=== PATIENT | male | born 1960 | race Hispanic/Latino ===

== ENCOUNTER 2024-11-07 09:53 | Emergency (ER) | payer OTHER ==
[2024-11-07] MEDS ORDERED: NA CHLORIDE 0.9% 1,000 ML ONE (10:23)
[2024-11-07] MEDS ORDERED: FAMOTIDINE 20 MG/2 ML VIAL IV ONE (10:23)
[2024-11-07] MEDS ORDERED: ONDANSETRON 4 MG/2 ML VIAL ONE (10:23)
[2024-11-07 10:47] LABS: Absolute Lymphocytes (CBC) 2.8 K/uL (0.7-4.9); Hematocrit 47.3 % (39.6-49.0); Hemoglobin 16.2 g/dL (13.6-17.9); MCH 30.5 pg (27.0-35.0); MCHC 34.1 g/dL (32.0-36.0); MCV 89.5 fL (80-100); MPV 8.9 fL (7.6-11.3); Nucleated RBC Absolute Count 0.0 (0-0); Nucleated Red Blood Cells % 0.1 % (0-0); RBC Red Blood Cell Count 5.29 M/uL (4.33-5.43); White Blood Count 10.40 thou/uL (4.3-10.9)
[2024-11-07 10:54] LABS: PT Prothrombin Time 13.3 SECONDS (10-13.0); Protime INR 1.18
--- NOTE | 2024-11-07 10:59 | RAD REPORT ---
EXAMINATION: ONE VIEW CHEST XR CLINICAL INDICATION: Male, 64 years old.,ABDOMINAL DISTENTION TECHNIQUE: Frontal chest projection is submitted. Examination is limited by patient positioning and t echnique. COMPARISON: No prior exam. FINDINGS: The lungs are grossly clear although suboptimal inspiratory effort somewhat limits evaluation. No pn eumothorax or sizable effusion. The heart is normal in size. Mediastinal contours are unremarkable. IMPRESSION: No acute intrathoracic abnormalities.
[2024-11-07 11:08] LABS: Urine Microscopic Reflex YN NO UMIC
[2024-11-07 11:21] LABS: ALT/SGPT 87.0 U/L (16-61); AST/SGOT 65.0 U/L (15-37); Albumin 3.7 g/dL (3.4-5.0); Albumin/Globulin Ratio 0.8 (1.1-1.8); Alkaline Phosphatase 97.0 U/L (45-117); Anion Gap 10.3 mEq/L (5.0-15.0); BUN Blood Urea Nitrogen 12.0 mg/dL (7-18); Bilirubin Indirect, Calculated 0.8 mg/dL (0.2-0.8); Globulin 4.5 g/dL (2.3-3.5); Glucose Level 238.0 mg/dL (74-106); Lipase 26.0 U/L (13-75); Magnesium 1.8 mg/dL (1.6-2.4); NT PRO-BNP 22.0 pg/mL (<125); Potassium 3.3 mEq/L (3.5-5.1); Troponin High Sensitivity 33.4 pg/mL (<58.9)
[2024-11-07] MEDS ORDERED: POTASSIUM 25 MEQ EFFERV TAB ONE (11:51)
[2024-11-07 12:02] LABS: Influenza A Ag Negative
[2024-11-07 12:03] LABS: Influenza B Ag Negative; SARS-CoV-2 Antigen Rapid Res Negative (Negative)
--- NOTE | 2024-11-07 13:11 | EDPHYS ---
Physician Documentation [facility] Name: Srikanth Hanson Age: 64 yrs Sex: Male : 1960 Arrival Date: 11/07/2024 Time: 09:53 Bed DX3 Private MD: ED Physician Santosh Chen HPI: 11/07 10:55 This 64 yrs old Male presents to ER via Ambulatory with complaints of emi Headache, Dizziness, Epigastric Pain. 10:55 The patient complains of pain to the forehead, left frontal area and right frontal emi area. The patient describes the headache as aching. Onset: The symptoms/episode began/occurred 2 day(s) ago. Associated signs and symptoms: The patient has no apparent associated signs or symptoms. Severity of symptoms: At its worst the pain was mild, moderate, in the emergency department the pain is unchanged. Headache History: The patient has had previous headaches and this one is similar to previous episodes. The symptoms are alleviated by nothing. the symptoms are aggravated by nothing. The patient has experienced similar episodes in the past, multiple times. Historical: - Allergies: 10:13 No Known Allergies; ss - PMHx: 10:13 Hypercholesterolemia; Hypertensive disorder; Diabetes mellitus; ss - PSHx: 10:13 None; ss - Immunization history:: Adult Immunizations up to date. - Infectious Disease History:: Denies. - Social history:: Smoking status: Patient reports the use of cigarette tobacco products, denies chronic smoking, but will smoke occasionally. - Family history:: not pertinent. ROS: 10:55 Constitutional: Negative for fever, chills, and weight loss, Eyes: Negative for injury, emi pain, redness, and discharge, ENT: Negative for injury, pain, and discharge, Neck: Negative for injury, pain, and swelling, Cardiovascular: Negative for chest pain, palpitations, and edema, Respiratory: Negative for shortness of breath, cough, wheezing, and pleuritic chest pain, Abdomen/GI: Negative for abdominal pain, nausea, vomiting, diarrhea, and constipation, Back: Negative for injury and pain, : Negative for injury, bleeding, discharge, and swelling, MS/Extremity: Negative for injury and deformity, Skin: Negative for injury, rash, and discoloration, Psych: Negative for depression, anxiety, suicide ideation, homicidal ideation, and hallucinations, Allergy/Immunology: Negative for hives, rash, and allergies, Endocrine: Negative for neck swelling, polydipsia, polyuria, polyphagia, and marked weight changes, 10:55 Neuro: Positive for headache, Exam: 10:55 Constitutional: This is a well developed, well nourished patient who is awake, alert, emi and in no acute distress. Head/Face: Normocephalic, atraumatic. Eyes: Pupils equal round and reactive to light, extra-ocular motions intact. Lids and lashes normal. Conjunctiva and sclera are non-icteric and not injected. Cornea within normal limits. Periorbital areas with no swelling, redness, or edema. ENT: Nares patent. No nasal discharge, no septal abnormalities noted. Tympanic membranes are normal and external auditory canals are clear. Oropharynx with no redness, swelling, or masses, exudates, or evidence of obstruction, uvula midline. Mucous membranes moist. Neck: Trachea midline, no thyromegaly or masses palpated, and no cervical lymphadenopathy. Supple, full range of motion without nuchal rigidity, or vertebral point tenderness. No Meningismus. Chest/axilla: Normal chest wall appearance and motion. Nontender with no deformity. No lesions are appreciated. Cardiovascular: Regular rate and rhythm with a normal S1 and S2. No gallops, murmurs, or rubs. Normal PMI, no JVD. No pulse deficits. Respiratory: Lungs have equal breath sounds bilaterally, clear to auscultation and percussion. No rales, rhonchi or wheezes noted. No increased work of breathing, no retractions or nasal flaring. Abdomen/GI: Soft, non-tender, with normal bowel sounds. No distension or tympany. No guarding or rebound. No evidence of tenderness throughout. Back: No spinal tenderness. No costovertebral tenderness. Full range of motion. Male : Normal genitalia with no discharge or lesions. Skin: Warm, dry with normal turgor. Normal color with no rashes, no lesions, and no evidence of cellulitis. MS/ Extremity: Pulses equal, no cyanosis. Neurovascular intact. Full, normal range of motion., bilateral aka Neuro: Awake and alert, GCS 15, oriented to person, place, time, and situation. Cranial nerves II-XII grossly intact. Motor strength 5/5 in all extremities. Sensory grossly intact. Cerebellar exam normal. Normal gait. Psych: Awake, alert, with orientation to person, place and time. Behavior, mood, and affect are within normal limits. 13:13 ECG was reviewed by the Attending Physician. [facility] Vital Signs: 10:10 BP 143 / 84; Pulse 71; Resp 15; Temp 98.2(O); Pulse Ox 100% on R/A; Weight 81.65 kg; ss Height 5 ft. 4 in. ; Pain 9/10; 10:10 Body Mass Index 30.90 (81.65 kg, 162.56 cm) ss 10:10 Pain Scale: Adult ss MDM: 10:01 Medical Screening Exam initiated [facility] 11/07 10:02 Order name: Basic Metabolic Panel; Complete Time: 13: [facility] 11/07 10:02 Order name: CBC with Diff; Complete Time: 13: [facility] 11/07 10:02 Order name: LFT's; Complete Time: 13: [facility] 11/07 10:02 Order name: Magnesium; Complete Time: 13: [facility] 11/07 10:02 Order name: NT PRO-BNP; Complete Time: 13: [facility] 11/07 10:02 Order name: PT-INR; Complete Time: 13: [facility] 11/07 10:02 Order name: Troponin HS; Complete Time: 13: [facility] 11/07 10:02 Order name: Lipase; Complete Time: 13:05 [facility] 11/07 10:02 Order name: UA Rfx David Cult if indicated; Complete Time: 13: [facility] 11/07 10:40 Order name: COVID-19 Ag + Flu A+B Ag; Complete Time: 13: [facility] 11/07 10:41 Order name: Group A Streptococcus Rapid; Complete Time: 13:05 [facility] 11/07 11:45 Order name: Throat Culture [facility] 11/07 10:02 Order name: XRAY Chest (1 view); Complete Time: 13:05 [facility] 11/07 13:08 Order name: CT Head Brain wo Cont [facility] 11/07 10:02 Order name: Cardiac monitoring; Complete Time: 10:35 [facility] 11/07 10:02 Order name: EKG - Nurse/Tech; Complete Time: 10:35 [facility] 11/07 10:02 Order name: IV Saline Lock; Complete Time: 10:35 [facility] 11/07 10:02 Order name: Labs collected and sent; Complete Time: 10:35 [facility] 11/07 10:02 Order name: O2 Per Protocol; Complete Time: :35 [facility] 11/07 10:02 Order name: O2 Sat Monitoring; Complete Time: 10:35 emi EC:13 Rate is 65 beats/min. Rhythm is regular. QRS Alligator is Normal. CA interval is normal. QRS emi interval is normal. QT interval is normal. No Q waves. T waves are Normal. No ST changes noted. Clinical impression: NSR w/ Non-specific ST/T Changes and No evidence of ischemia. Interpreted by me. Reviewed by me. Administered Medications: 10:30 Drug: Ondansetron IVP 4 mg IVP once; over 2 minutes Route: IVP; Site: right forearm; ss 11:29 Follow up: Response: No adverse reaction ss 10:35 Drug: NS 0.9% IV 1000 ml IV at 1000 ml once; to be given as a bolus over 60 minutes ss Route: IV; Rate: 1000 ml; Site: right forearm; 11:29 Follow up: IV Status: Completed infusion; IV Intake: 1000ml ss 10:35 Drug: Famotidine IVP 20 mg IVP once; dilute with 10 mL 0.9% NaCl; give over 2 minutes ss Route: IVP; Site: right forearm; 11:28 Follow up: Response: No adverse reaction ss 11:28 Not Given (pt has no discomfort at this time): GI Cocktail without - ss (maaloxsuspension 30 ml, lidocaine mucous membrane liquid 2 % 15 ml) PO once 11:56 Drug: Potassium PO Effervescent Tablet 25 mEq PO once; dissolve in 4 ounces of water or ss juice Route: PO; 13:16 Follow up: Response: No adverse reaction ss Disposition Summary: 11/07/24 13:10 Discharge Ordered Notes: Location: Home emi Problem: new emi Symptoms: have improved emi Condition: Stable emi Diagnosis - Headache emi - Gastro-esophageal reflux disease without esophagitis emi - Hypokalemia emi - Type 2 diabetes mellitus with hyperglycemia emi Followup: emi - With: Private Physician - When: 2 - 3 days - Reason: Recheck today's complaints, Continuance of care, Re-evaluation by your physician Followup: emi - With: Escobar Reid MD - When: 2 - 3 days - Reason: Recheck today's complaints, Re-evaluation by your physician Discharge Instructions: - Discharge Summary Sheet emi - Food Choices for Gastroesophageal Reflux Disease, Adult emi - Potassium Content of Foods emi - Esophagitis emi - Gastroesophageal Reflux Disease, Adult emi - General Headache Without Cause emi - Gastroesophageal Reflux Disease, Adult, [id number] emi - Diabetes Mellitus and Nutrition, Adult emi - General Headache Without Cause, [id number] emi Forms: - Medication Reconciliation Form emi - Antibiotic Education emi - Prescription Opioid Use emi - Patient Portal Instructions emi - Leadership Thank You Letter emi - Work release form ss Prescriptions: - Pepcid 20 mg Oral tablet - take 1 tablet ORAL route every 12 hours for 30 days; 60 tablet; Refills: 0, emi Product Selection Permitted Signatures: Dispatcher [employer] EDSantosh Velez MD MD cha Blanchard, Shelby RN RN ss Corrections: (The following items were deleted from the chart) 10:03 10:02 BASIC METABOLIC PANEL+C.LAB.BRZ ordered. EDMS EDMS 10:03 10:02 CBC+H.LAB.BRZ ordered. EDMS EDMS 10:03 10:02 HEPATIC FUNCTION+C.LAB.BRZ ordered. EDMS EDMS 10:03 10:02 MAGNESIUM+C.LAB.BRZ ordered. EDMS EDMS 10:03 10:02 PROBNP+C.LAB.BRZ ordered. EDMS EDMS 10:03 10:02 PROTIME (+INR)+COAG.LAB.BRZ ordered. EDMS EDMS 10:03 10:02 Troponin High Sensitivity+C.LAB.BRZ ordered. EDMS EDMS 10:03 10:02 LIPASE+C.LAB.BRZ ordered. EDMS EDMS 10:03 10:02 UA Rfx David Cult if indicated+U.LAB.BRZ ordered. EDMS EDMS 10:03 10:03 Chest Single View+RAD.RAD.BRZ ordered. EDMS EDMS 13:09 13:09 Head Brain Wo Cont+CT.RAD.BRZ ordered. EDMS EDMS
--- NOTE | 2024-11-07 13:11 | ER ---
Nurse's Notes [facility] Name: Srikanth Hanson Age: 64 yrs Sex: Male : 1960 Arrival Date: 11/07/2024 Time: 09:53 Bed DX3 Private MD: Diagnosis: Headache;Gastro-esophageal reflux disease without esophagitis;Hypokalemia;Type 2 diabetes mellitus with hyperglycemia Presentation: 11/07 10:10 Chief complaint: Patient states: headache, reflux, fatigue, dizziness and leg cramping ss x 3 days. Coronavirus screen: Client denies travel out of the [place] in the last 14 days. Ebola Screen: Patient denies exposure to infectious person. Patient denies travel to an Ebola-affected area in the 21 days before illness onset. Initial Sepsis Screen: Does the patient meet any 2 criteria? No. Patient's initial sepsis screen is negative. Does the patient have a suspected source of infection? No. Patient's initial sepsis screen is negative. Risk Assessment: Do you want to hurt yourself or someone else? Patient reports no desire to harm self or others. Onset of symptoms was November 04, 2024. 10:10 Method Of Arrival: Ambulatory ss 10:10 Acuity: ROGELIO 3 ss Historical: - Allergies: 10:13 No Known Allergies; ss - PMHx: 10:13 Hypercholesterolemia; Hypertensive disorder; Diabetes mellitus; ss - PSHx: 10:13 None; ss - Immunization history:: Adult Immunizations up to date. - Infectious Disease History:: Denies. - Social history:: Smoking status: Patient reports the use of cigarette tobacco products, denies chronic smoking, but will smoke occasionally. - Family history:: not pertinent. Screenin:29 Abuse screen: Denies threats or abuse. Denies injuries from another. Nutritional ss screening: No deficits noted. Tuberculosis screening: Has had TB. Assessment: 11:29 Reassessment: Patient appears in no apparent distress at this time. Patient and/or ss family updated on plan of care and expected duration. Pain level reassessed. Patient is alert, oriented x 3, equal unlabored respirations, skin warm/dry/pink. Patient states feeling better. Patient states symptoms have improved. General:. Pain: Complains of pain in headache in entire Pain currently is 1 out of 10 on a pain scale. Respiratory: Airway is patent Respiratory effort is even, unlabored. 13:55 Reassessment: Patient appears in no apparent distress at this time. Patient and/or ss family updated on plan of care and expected duration. Pain level reassessed. Patient is alert, oriented x 3, equal unlabored respirations, skin warm/dry/pink. Neuro: Level of Consciousness is awake, alert, obeys commands, Oriented to person, place, time, situation. Derm: Skin is pink, warm \T\ dry. normal. Vital Signs: 10:10 BP 143 / 84; Pulse 71; Resp 15; Temp 98.2(O); Pulse Ox 100% on R/A; Weight 81.65 kg; ss Height 5 ft. 4 in. ; Pain 9/10; 10:10 Body Mass Index 30.90 (81.65 kg, 162.56 cm) ss 10:10 Pain Scale: Adult ss ED Course: 09:59 Patient arrived in ED. im 10:01 Santosh Chen MD is Attending Physician. emi 10:13 Triage completed. ss 10:13 Arm band placed on right wrist. ss 10:25 XRAY Chest (1 view) In Process Unspecified. EDMS 11:29 Patient has correct armband on for positive identification. ss 11:29 Group A Streptococcus Rapid Sent. ss 11:29 COVID-19 Ag + Flu A+B Ag Sent. ss 13:09 Escobar Reid MD is Referral Physician. emi 13:29 CT Head Brain wo Cont In Process Unspecified. EDMS 13:55 Mandi Edwards, TONI is Primary Nurse. ss 13:55 No provider procedures requiring assistance completed. IV discontinued, intact, ss bleeding controlled, No redness/swelling at site. Pressure dressing applied. Administered Medications: 10:30 Drug: Ondansetron IVP 4 mg IVP once; over 2 minutes Route: IVP; Site: right forearm; ss 11:29 Follow up: Response: No adverse reaction ss 10:35 Drug: NS 0.9% IV 1000 ml IV at 1000 ml once; to be given as a bolus over 60 minutes ss Route: IV; Rate: 1000 ml; Site: right forearm; 11:29 Follow up: IV Status: Completed infusion; IV Intake: 1000ml ss 10:35 Drug: Famotidine IVP 20 mg IVP once; dilute with 10 mL 0.9% NaCl; give over 2 minutes ss Route: IVP; Site: right forearm; 11:28 Follow up: Response: No adverse reaction ss 11:28 Not Given (pt has no discomfort at this time): GI Cocktail without - ss (maaloxsuspension 30 ml, lidocaine mucous membrane liquid 2 % 15 ml) PO once 11:56 Drug: Potassium PO Effervescent Tablet 25 mEq PO once; dissolve in 4 ounces of water or ss juice Route: PO; 13:16 Follow up: Response: No adverse reaction ss Medication: 11:29 VIS not applicable for this client. ss Intake: 11:29 IV: 1000ml; Total: 1000ml. ss Outcome: 13:10 Discharge ordered by . emi 13:55 Discharged to home ambulatory, 13:55 Condition: improved 13:55 Discharge instructions given to patient, Instructed on discharge instructions, follow up and referral plans. Demonstrated understanding of instructions, follow-up care, medications, Prescriptions given X 1, 13:56 Patient left the ED. ss Signatures: Dispatcher [employer] Santosh Ye MD MD cha Blanchard, Shelby, RN RN Salma Kelley
--- NOTE | 2024-11-07 13:44 | RAD REPORT ---
EXAM: CT brain without contrast HISTORY: HEADACHE COMPARISON: None TECHNIQUE: Multiple contiguous axial images were obtained and a CT of the brain without contrast. Sag ittal and coronal reformats were performed. One or more of the following dose reduction techniques were used: Automated exposure control, adjust ment of the mA and/or kV according to patient size, and/or iterative reconstruction. FINDINGS: No evidence of hydrocephalus, intracranial hemorrhage, or extra-axial fluid collection. The brain is normal in morphology. No evidence of midline shift or areas of brain edema. The calvarium is intact. The visualized paranasal sinuses and mastoid air cells are essentially clear . Mild vertebral atherosclerosis. IMPRESSION: No evidence of acute intracranial abnormality.
[2024-11-07 14:15] VITALS: BP 143/84; TEMP 98.2; O2SAT 100
== END 2024-11-07 13:56 | disposition home or self-care (01) ==
LOC: ER 09:53
DX: E11.65 Type 2 diabetes mellitus with hyperglycemia (principal); E87.6 Hypokalemia; K21.9 Gastro-esophageal reflux disease without esophagitis; F17.210 Nicotine dependence, cigarettes, uncomplicated; Z11.52 Encounter for screening for COVID-19
CPT/HCPCS: 96361; 93005; 87070; 85025; 80048; 36415; 83735; 85610; 80076; 81003; 84484; 83690; 83880; 70450; 71045; 96375; 96374; 99284; 87428; J2405; J7030